=== PATIENT | male | born 1990 | race Caucasian/White ===

== ENCOUNTER 2018-08-06 17:20 | Emergency (ER) | payer OTHER ==
[~2018-08-06] VITALS: Ht 182.9 cm; Wt 81.9 kg
[2018-08-06 17:32] VITALS: Ht 182.9 cm; Wt 81.9 kg
--- NOTE | 2018-08-06 19:29 | ERD ---
ER Documentation Chief Complaint Chief Complaint RIGHT FOOT PAIN S/P TV LANDED ON FOOT TODAY HPI 28-year-old male presenting with right foot pain after a TV fell onto his foot. He states that the TV was very heavy. He is able to walk but with a limp due to pain. No numbness or tingling. Denies any ankle pain or any pain above the ankle. The pain is mostly in the middle of his foot, aching, 8 out of 10, nonradiating, with no alleviating factors. Exacerbated by walking. Has not taken anything prior to arrival for the pain. ROS All systems reviewed and are negative except as per history of present illness. Medications Home Meds Active Scripts Naproxen* (Naprosyn*) 500 Mg Tablet, 500 MG PO BID PRN for PAIN AND/OR INFLAMMATION, #30 TAB Prov:SHEA SIMON MD 08/06/18 Allergies Allergies: Coded Allergies: No Known Drug Allergy (Unverified Allergy, Unknown, 04/09/06) PMhx/Soc History of Surgery: No Anesthesia Reaction: No Hx Neurological Disorder: No Hx Respiratory Disorders: No Hx Cardiac Disorders: No Hx Psychiatric Problems: No Hx Miscellaneous Medical Probl: No Hx Alcohol Use: No Hx Substance Use: No Hx Tobacco Use: No Smoking Status: Never smoker FmHx Family History: No diabetes Physical Exam Vitals Vital Signs Date Temp Pulse Resp B/P (MAP) Pulse Ox O2 O2 Flow FiO2 Time Delivery Rate 08/06/18 98.0 71 18 126/65 98 Room Air 20:07 (85) 08/06/18 98.0 82 18 120/81 98 Room Air 19:10 (94) 08/06/18 98.0 118 18 122/73 98 17:32 (89) Physical Exam INITIAL VITAL SIGNS: Reviewed by me GENERAL: Well appearing, non toxic, speaking in full sentences. HEENT: Atraumatic, Moist mucous membranes NECK: Supple. RESPIRATORY: No respiratory distress. EXTREMITIES: No clubbing or cyanosis. No edema. Right midfoot with contusion, no deformities. Tenderness to palpation of the midfoot. Toes atraumatic. Full range of motion of all toes. Full range of motion at the ankle. 2+ DP and PT pulses. SKIN: Warm, dry. NEUROLOGIC: Alert and awake. 5 out of 5 strength in all 4 extremities. Sensations intact in all distributions. Results 24 hrs Current Medications Medications Dose Sig/Susan Start Time Status Last (Trade) Ordered Route PRN Stop Time Admin Dose Reason Admin Ibuprofen 600 mg ONCE ONCE 08/06/18 DC 08/06/18 (Motrin) PO 20:00 08/06/18 20:06 20:01 Procedures/MDM X-ray right foot shows no acute traumatic abnormality [facility] Patient is presenting with likely right foot contusion. He is neurovascularly intact. He was treated with NSAIDs for pain with good response. X-ray did not show any acute fracture dislocation. Recommended weightbearing as tolerated, elevating the leg, and ice to the area of pain. NSAIDs were recommended for pain control. Return precautions discussed. Patient's blood pressure was elevated (>120/80) but appears stable without evidence of hypertension emergency or urgency. The patient was counseled about the risks of hypertension and urged to pursue outpatient monitoring and therapy within a week with their primary care physician. Departure Diagnosis: Primary Impression: Contusion of right foot, initial encounter Additional Impression: Injury of foot Encounter type: initial encounter Laterality: right Qualified Codes: S99.921A - Unspecified injury of right foot, initial encounter Condition: Stable SHEA SIMON MD Aug 06, 2018 19:29
[2018-08-06] MEDS ORDERED: NAPR-985 PO (19:57)
[2018-08-06] MEDS ORDERED: IBUPROFEN 600 MG TAB PO ONE (20:00)
[2018-08-06 20:07] VITALS: BP 126/65; PULSE 71; RESP 18
== END 2018-08-06 20:07 | disposition home or self-care (01) ==
LOC: E/R 17:20
DX: S90.31XA Contusion of right foot, initial encounter (principal); W20.8XXA Other cause of strike by thrown, projected or falling object, initial encounter; Y92.9 Unspecified place or not applicable
CPT/HCPCS: 73630; Z7502; Z7610